=== PATIENT | female | born 1945 | race Caucasian/White ===

== ENCOUNTER 2020-02-05 10:23 | Emergency (ER) | payer OTHER ==
[~2020-02-05] VITALS: Ht 154.9 cm; Wt 46.7 kg
[2020-02-05] MEDS ORDERED: NAMENDA 10 MG T10 MG PO (10:49)
[2020-02-05] MEDS ORDERED: DESYREL150 MG PO (10:49)
[2020-02-05] MEDS ORDERED: REQUIP5 MG PO (10:49)
[2020-02-05] MEDS ORDERED: ARICEPT10 MG PO (10:50)
[2020-02-05] MEDS ORDERED: TOPROL XL25 MG PO (10:51)
[2020-02-05] MEDS ORDERED: LISINOPRIL2.5 MG PO (10:51)
[2020-02-05 10:52] LABS: ABSOLUTE EOSINOPHILS 0.1 thou/uL (0.0-0.7); ABSOLUTE LYMPHOCYTES 1.7 thou/uL (0.8-5.3); ABSOLUTE MONOCYTES 0.5 thou/uL (0.0-1.2); ABSOLUTE NEUTROPHILS 3.6 thou/uL (1.6-8.1); BASOPHILS 0.8 %; EOSINOPHILS 1.5 %; HEMATOCRIT 38.6 % (37.0-47.0); HEMOGLOBIN 12.9 gm/dL (12.0-15.0); LYMPHOCYTES 28.6 %; MCH 29.7 pg (26.0-34.0); MCHC 33.6 g/dL (28.0-37.0); MCV 88.5 fL (80.0-100.0); MONOCYTES 9.1 %; MPV 8.4 fl. (7.2-11.1); NUCLEATED RBCS 0 /100WBC; PLATELET COUNT* 283 thou/uL (150-400); RBC 4.36 mil/uL (4.20-5.00); RDW-CV 13.9 % (10.5-14.5)
[2020-02-05 10:58] LABS: CALCIUM 8.9 mg/dL (8.5-10.1); POTASSIUM 3.8 mmol/L (3.5-5.1)
[2020-02-05 11:02] LABS: ALBUMIN 3.5 g/dL (3.4-5.0); TOTAL BILIRUBIN 0.3 mg/dL (<0.1-1.0)
[2020-02-05] MEDS ORDERED: NORCO 5-325 TA1 EAC2 PO (13:09)
[2020-02-05 13:25] VITALS: BP 143/72
== END 2020-02-05 13:26 | disposition home or self-care (01) ==
LOC: M.ERS 10:23
PROVIDERS: Physician Assistant
DX: M25.551 Pain in right hip (principal); M79.604 Pain in right leg; I10 Essential (primary) hypertension; E78.00 Pure hypercholesterolemia, unspecified